=== PATIENT | female | born 1970 | race Two or more races ===

== ENCOUNTER 2017-01-07 15:42 | Observation (INO) | payer MEDICAID ==
[2017-01-07] MEDS ORDERED: TYLENOL325 M2 GT (16:01)
[2017-01-07] MEDS ORDERED: BISCOLAX10 MG PR (16:02)
[2017-01-07] MEDS ORDERED: PERIDEX118 ML MM (16:03)
[2017-01-07] MEDS ORDERED: VITAMIN D31000 UNI4 GT (16:04)
[2017-01-07] MEDS ORDERED: CULTURELLE1 EAC1 GT (16:07)
[2017-01-07] MEDS ORDERED: IPRAT-ALBUT 0.5-3 ML INH (16:09)
[2017-01-07] MEDS ORDERED: GUAIFENESIN DM S5 M1 GT (16:09)
[2017-01-07] MEDS ORDERED: LAMICTAL100 M2 GT (16:10)
[2017-01-07] MEDS ORDERED: KEPPRA100 MG/1 M GT (16:10)
[2017-01-07] MEDS ORDERED: LOPERAMIDE1 MG/5 M3 GT (16:12)
[2017-01-07] MEDS ORDERED: LORAZEPAM2 MG/1 M4 GT (16:13)
[2017-01-07] MEDS ORDERED: MILK OF MAGNESIA GT (16:14)
[2017-01-07] MEDS ORDERED: OMEPRAZOLE GT (16:15)
[2017-01-07] MEDS ORDERED: TRILEPTAL300 M2 GT (16:16)
[2017-01-07] MEDS ORDERED: PREVALITE PACKET4 GM GT (16:17)
[2017-01-07] MEDS ORDERED: POTASSIUM20 MEQ/13 GT (16:17)
[2017-01-07] MEDS ORDERED: RISPERDAL0.5 M2 GT (16:18)
[2017-01-07] MEDS ORDERED: TOPAMAX100 M2 GT (16:18)
[2017-01-07] MEDS ORDERED: VIMPAT200 M1 GT (16:19)
[2017-01-07] MEDS ORDERED: ZOFRAN4 M2 GT (16:19)
[2017-01-07] MEDS ORDERED: ACETAMINOPHEN650 MG PR (16:20)
[2017-01-07] MEDS ORDERED: FLEET ENEMA133 ML PR (16:21)
[2017-01-07] MEDS ORDERED: MULTIVITAMINS1 EAC5 PO (16:21)
[2017-01-07 16:48] LABS: BASO % 0.1 % (0-2); EOS % 0.5 % (0-7); EOSINOPHIL ABSOLUTE COUNT 0.1 tho/cmm (0.0-0.7); HCT-HEMATOCRIT 43.4 % (34.0-49.0); IMMATURE GRANULOCYTES ABSOLUTE 0.03 tho/cmm (0-0.03); IMMATURE GRANULOCYTES PERCENT 0.2 % (0-0.3); LYMPH % 14.7 % (20-45); LYMPH ABSOLUTE COUNT 1.8 tho/cmm (0.8-4.5); MCH (MEAN CORPUSCULAR HGB) 29.8 pg (28.0-32.0); MCHC MEAN CORPUSCULAR HGB CONC 32.3 % (32.0-36.0); MCV (MEAN CELL VOLUME) 92.3 fl (82.0-96.0); MEAN PLATELET VOLUME 9.9 cmc (9.4-12.4); MONO % 8.1 % (0-12); NEUTROPHIL ABSOLUTE COUNT 9.3 tho/cmm (1.6-8.0); NEUTROPHIL-AUTOMATED 9.3 tho/cmm (1.6-8.0); NEUTROPHILS % 76.4 % (40-80); PLATELET COUNT 344 tho/cmm (150-450); RED CELL DISTRIBUTION WIDTH 13.8 % (12.4-16.4); WHITE BLOOD COUNT 12.1 tho/cmm (4.0-10.0)
[2017-01-07 16:57] LABS: ALB/GLOB RATIO 0.7 (0.8-2.0); ALBUMIN 3.3 g/dl (3.5-5.0); ALKALINE PHOSPHATASE 118 U/L (33-138); ALT/SGPT 35 U/L (12-78); BILIRUBIN,TOTAL 0.4 mg/dl (0-1.5); BLOOD UREA NITROGEN 16 mg/dl (6-24); CALCIUM 9.7 mg/dl (8.5-10.5); CARBON DIOXIDE-VENOUS 26 mmol/L (22-32); CHLORIDE 109 mmol/l (96-110); CREATININE 0.92 mg/dl (0.50-1.10); GLUCOSE 112 mg/dL (70-110); LIPASE 235 U/L (73-393); SODIUM 146 mmol/L (135-145); eGFR VALUE FOR BLACK 87 mL/Min
[2017-01-07 16:58] LABS: URINE BILIRUBIN NEGATIVE (NEG); URINE BLOOD SMALL (NEG); URINE GLUCOSE (UA) NEGATIVE (NEG); URINE KETONE NEGATIVE (NEG); URINE LEUKOCYTE ESTERASE POSITIVE (NEG); URINE NITRITE NEGATIVE (NEG); URINE PROTEIN SMALL (NEG)
[2017-01-07 16:59] LABS: ANION GAP 15 mmol/L (0-20); AST/SGOT 31 U/L (10-40)
[2017-01-07 17:03] LABS: URINE APPEARANCE CLOUDY; URINE COLOR YELLOW
[2017-01-07 17:10] LABS: URINE AMORPHOUS 3+
[2017-01-07 17:15] LABS: URINE EPITHELIAL CELLS 0-1 /[HPF] (0-10)
[2017-01-07 18:55] LABS: PROCALCITONIN <0.05 ng/ml (0.05-0.09)
[2017-01-07 19:34] LABS: MAGNESIUM 2.3 mg/dl (1.8-2.6); PHOSPHOROUS 3.7 mg/dl (2.5-4.9)
[2017-01-08 05:50] LABS: BASO % 0.1 % (0-2); EOS % 1.7 % (0-7); EOSINOPHIL ABSOLUTE COUNT 0.1 tho/cmm (0.0-0.7); HCT-HEMATOCRIT 36.9 % (34.0-49.0); HGB-HEMOGLOBIN 11.7 gm/dl (12.0-15.5); IMMATURE GRANULOCYTES ABSOLUTE 0.01 tho/cmm (0-0.03); IMMATURE GRANULOCYTES PERCENT 0.1 % (0-0.3); LYMPH % 24.2 % (20-45); LYMPH ABSOLUTE COUNT 1.9 tho/cmm (0.8-4.5); MCH (MEAN CORPUSCULAR HGB) 29.2 pg (28.0-32.0); MCHC MEAN CORPUSCULAR HGB CONC 31.7 % (32.0-36.0); MEAN PLATELET VOLUME 9.6 cmc (9.4-12.4); MONO % 8.1 % (0-12); MONOCYTE ABSOLUTE COUNT 0.6 tho/cmm (0.0-1.2); NEUTROPHIL ABSOLUTE COUNT 5.1 tho/cmm (1.6-8.0); NEUTROPHIL-AUTOMATED 5.1 tho/cmm (1.6-8.0); NEUTROPHILS % 65.8 % (40-80); PLATELET COUNT 293 tho/cmm (150-450); RED BLOOD COUNT 4.01 mil/cmm (4.00-5.20); RED CELL DISTRIBUTION WIDTH 13.8 % (12.4-16.4); WHITE BLOOD COUNT 7.7 tho/cmm (4.0-10.0)
[2017-01-08 06:03] LABS: ANION GAP 14 mmol/L (0-20); BLOOD UREA NITROGEN 13 mg/dl (6-24); C-REACTIVE PROTEIN 0.7 mg/dl (0-0.9); CALCIUM 8.9 mg/dl (8.5-10.5); CARBON DIOXIDE-VENOUS 22 mmol/L (22-32); CHLORIDE 114 mmol/l (96-110); CREATININE 0.69 mg/dl (0.50-1.10); GLUCOSE 104 mg/dL (70-110); POTASSIUM 3.5 mmol/L (3.7-5.1); SODIUM 146 mmol/L (135-145); eGFR VALUE FOR BLACK >90 mL/Min
== END 2017-01-08 12:45 ==
LOC: EDMED 15:42 → EMR2 19:08 → 5WE 20:16
PROVIDERS: Emergency Medicine; Internal Medicine; ADMIT Family Medicine
PROC: 0DJ08ZZ Inspection of Upper Intestinal Tract, Via Natural or Artificial Opening Endoscopic (ICD-10-PCS; principal; 2017-01-08)
DX: T85.528A Displacement of other gastrointestinal prosthetic devices, implants and grafts, initial encounter (principal); G40.909 Epilepsy, unspecified, not intractable, without status epilepticus; F73 Profound intellectual disabilities; E11.9 Type 2 diabetes mellitus without complications; E86.0 Dehydration; D72.829 Elevated white blood cell count, unspecified; F03.90 Unspecified dementia, unspecified severity, without behavioral disturbance, psychotic disturbance, mood disturbance, and anxiety; R27.0 Ataxia, unspecified; D64.9 Anemia, unspecified; E46 Unspecified protein-calorie malnutrition; F25.9 Schizoaffective disorder, unspecified; Z79.899 Other long term (current) drug therapy; Z88.0 Allergy status to penicillin; Z88.8 Allergy status to other drugs, medicaments and biological substances; Z87.440 Personal history of urinary (tract) infections; Z98.890 Other specified postprocedural states
CPT/HCPCS: C9113; G0378; J1650; J1956; J2765; J7030; P9612